=== PATIENT | female | born 1935 | race Caucasian/White ===

== ENCOUNTER 2019-12-16 21:00 | Emergency (ER) | payer MEDICARE, MEDICAID ==
[~2019-12-16] VITALS: Ht 162.6 cm; Wt 68.0 kg
[2019-12-16 21:29] VITALS: BP_SYST 186
[2019-12-16 21:45] LABS: MEAN CORPUSCULAR HEMOGLOBIN 30 pg (27-31)
[2019-12-16 21:49] LABS: BASOPHILS # (AUTO) 0.1 K/uL (0.0-0.2); BASOPHILS % (AUTO) 0.9 % (0.0-2.0); EOSINOPHILS # (AUTO) 0.2 K/uL (0.0-0.4); EOSINOPHILS % (AUTO) 1.9 % (0.0-4.0); HEMATOCRIT 39.2 % (36-48); HEMOGLOBIN 12.9 g/dL (12.0-16.0); LYMPHOCYTES # (AUTO) 2.9 K/uL (1.0-5.5); LYMPHOCYTES % (AUTO) 27.3 % (20.5-51.5); MEAN CORPUSCULAR HGB CONC 33 % (32-36); MEAN CORPUSCULAR VOLUME 92 fL (79.0-98.0); MONOCYTES # (AUTO) 1.3 K/uL (0.0-1.0); MONOCYTES % (AUTO) 12.1 % (1.7-9.3); NEUTROPHILS # (AUTO) 6.2 K/uL (1.8-7.7); NEUTROPHILS % (AUTO) 57.8 % (40.0-70.0); PLATELET COUNT (AUTO) 287 K/uL (130-430); RED BLOOD CELL COUNT(AUTO) 4.25 MIL/uL (4.2-6.2); WHITE BLOOD COUNT (AUTO) 10.7 K/uL (4.8-10.8)
[2019-12-16 21:50] LABS: ANION GAP 10 (5-15); CALCIUM 9.5 mg/dL (8.4-11.0); CHLORIDE 103 mmol/L (98-107); CREATININE 1.09 mg/dL (0.55-1.30); GLUCOSE 121 mg/dL (70-99); POTASSIUM 3.5 mmol/L (3.5-5.1); SODIUM SERUM 141 mmol/L (136-145); UREA NITROGEN, BLOOD 32 mg/dL (8-21)
[2019-12-16 21:59] LABS: ALANINE AMINOTRANSFERASE 15 U/L (12-78); ALBUMIN 3.5 g/dL (3.4-4.8); ASPARTATE AMINOTRANSFERASE 16 U/L (10-37); TOTAL BILIRUBIN 0.2 mg/dL (0.0-1.0)
[2019-12-16 22:42] LABS: BILIRUBIN,URINE NEGATIVE (NEGATIVE); BLOOD, URINE 1+ (NEGATIVE); CLARITY/URINE SL CLOUDY (CLEAR); COLOR,URINE YELLOW (YELLOW); GLUCOSE,URINE NEGATIVE (NEGATIVE); KETONES,URINE NEGATIVE (NEGATIVE); LEUKOCYTE ESTERASE ,URINE 1+ (NEGATIVE); NITRITE, URINE POSITIVE (NEGATIVE); PROTEIN URINE NEGATIVE (NEGATIVE); UROBILINOGEN,URINE 0.2 (0.2-1.0)
[2019-12-16 22:55] LABS: BACTERIA,URINE MANY /HPF (None Seen)
[2019-12-16] MEDS ORDERED: METO25TA3 PO (23:16)
[2019-12-16] MEDS ORDERED: HYDR25TA4 PO (23:17)
[2019-12-16] MEDS ORDERED: cefTRIAXone 1 GM in D5W 50 ML IV ONE (23:30)
[2019-12-16] MEDS ORDERED: cefTRIAXone 1 GM VIAL ONE (23:51)
[2019-12-17 00:08] VITALS: BP_SYST 151
== END 2019-12-17 00:08 | disposition home or self-care (01) ==
LOC: SED 21:00
DX: N39.0 Urinary tract infection, site not specified (principal); R42 Dizziness and giddiness; Z79.899 Other long term (current) drug therapy
CPT/HCPCS: 36415; 70450; 71045; 80053; 81000; 84484; 85025; 85379; 87086; 93005; 96365; 99285; J0696; 87186-TC

== ENCOUNTER 2020-01-23 08:36 | Inpatient (IN) | payer MEDICAID, MEDICARE, SELFPAY ==
[~2020-01-23] VITALS: Ht 152.4 cm; Wt 56.9 kg
[2020-01-23 08:36] VITALS: BP_SYST 187
[~2020-01-23 08:36] MED LIST: HYDR25TA4 PO; METO25TA3 PO
--- NOTE | 2020-01-23 08:36 | NUR ---
BROUGHT BACK TO BED #7 VIA WHEELCHAIR, PLACED IN BED AND TRIAGED. REPORT GIVEN TO LUIS
--- NOTE | 2020-01-23 08:45 | NUR ---
Patient presented to ER C/O flank pain. Patient A&Ox4, BIB daughter wheelchair assistance to ER, afebrile, pain 12/19, denies N/V/D. Patient states she had sudden onset right flank pain today. Patient states he has HX of non-hodgkins lymphoma in remission, and was seen for UTI in December.
[2020-01-23] MEDS ORDERED: NACL 0.9% 1,000 ML IV ONE (08:52)
--- NOTE | 2020-01-23 08:55 | NUR ---
ER Dr. Mcdaniels at bedside examining patient.
[2020-01-23] MEDS ORDERED: ONDANSETRON HCL 4 MG/2 ML VIAL IVP ONE (09:00)
[2020-01-23] MEDS ORDERED: MORPHINE 4 MG/ML INJ. SYRINGE IVP ONE (09:00)
--- NOTE | 2020-01-23 09:15 | NUR ---
PT ASSISITED TO RESTROOM VIA WHEELCHAIR
[2020-01-23 09:26] LABS: BASOPHILS # (AUTO) 0.1 K/uL (0.0-0.2); BASOPHILS % (AUTO) 0.6 % (0.0-2.0); EOSINOPHILS # (AUTO) 0.1 K/uL (0.0-0.4); EOSINOPHILS % (AUTO) 1.6 % (0.0-4.0); HEMATOCRIT 40.2 % (36-48); HEMOGLOBIN 13.5 g/dL (12.0-16.0); LYMPHOCYTES # (AUTO) 1.8 K/uL (1.0-5.5); LYMPHOCYTES % (AUTO) 21.4 % (20.5-51.5); MEAN CORPUSCULAR HEMOGLOBIN 31 pg (27-31); MEAN CORPUSCULAR HGB CONC 34 % (32-36); MEAN CORPUSCULAR VOLUME 92 fL (79.0-98.0); MONOCYTES % (AUTO) 11.7 % (1.7-9.3); NEUTROPHILS # (AUTO) 5.4 K/uL (1.8-7.7); NEUTROPHILS % (AUTO) 64.7 % (40.0-70.0); PLATELET COUNT (AUTO) 276 K/uL (130-430); RED BLOOD CELL COUNT(AUTO) 4.37 MIL/uL (4.2-6.2); RED CELL DISTRIBUTION WIDTH 13.7 % (9.0-15.0); WHITE BLOOD COUNT (AUTO) 8.4 K/uL (4.8-10.8)
[2020-01-23 10:02] LABS: ANION GAP 7 (5-15); CALCIUM 9.4 mg/dL (8.4-11.0); CHLORIDE 105 mmol/L (98-107); CREATININE 1.05 mg/dL (0.55-1.30); GLUCOSE 94 mg/dL (70-99); SODIUM SERUM 140 mmol/L (136-145); UREA NITROGEN, BLOOD 26 mg/dL (8-21)
[2020-01-23 10:10] LABS: ALANINE AMINOTRANSFERASE 13 U/L (12-78); ALBUMIN 3.5 g/dL (3.4-4.8); ASPARTATE AMINOTRANSFERASE 18 U/L (10-37); LIPASE 250 U/L (73-393); TOTAL BILIRUBIN 0.5 mg/dL (0.0-1.0)
[2020-01-23 10:18] LABS: BILIRUBIN,URINE NEGATIVE (NEGATIVE); BLOOD, URINE 1+ (NEGATIVE); CLARITY/URINE SL CLOUDY (CLEAR); COLOR,URINE YELLOW (YELLOW); GLUCOSE,URINE NEGATIVE (NEGATIVE); KETONES,URINE NEGATIVE (NEGATIVE); LEUKOCYTE ESTERASE ,URINE TRACE (NEGATIVE); NITRITE, URINE POSITIVE (NEGATIVE); PROTEIN URINE NEGATIVE (NEGATIVE); UROBILINOGEN,URINE 0.2 (0.2-1.0)
[2020-01-23 10:33] LABS: BACTERIA,URINE FEW /HPF (None Seen)
[2020-01-23 10:35] LABS: CALCIUM OXALATE CRYSTALS,UR None Seen /HPF (None Seen); CALCIUM PHOSPHATE CRYSTALS,UR None Seen /HPF (None Seen); TRICHOMONAS,URINE None Seen /HPF (None Seen); URIC ACID CRYSTALS,URINE None Seen /HPF (None Seen); YEAST,URINE None Seen /HPF (None Seen)
[2020-01-23 10:36] LABS: TRIPLE PHOSPHATE CRYSTAL,UR 0-10 /HPF (None Seen)
[2020-01-23 10:37] LABS: OTHER CRYSTALS,URINE None Seen /HPF (None Seen)
[2020-01-23] MEDS ORDERED: cefTRIAXone 1 GM IVPB PREMIX 50 ML IV ONE (10:45)
--- NOTE | 2020-01-23 11:05 | NUR ---
PT ASSISTED TO RESTROOM WITH WHEELCHAIR
[2020-01-23] MEDS ORDERED: ASPIRIN 325 MG TABLET PO ONE (11:15)
--- NOTE | 2020-01-23 11:15 | NUR ---
Urine specimen collected and analyzed in ER. Results given to ER .
--- NOTE | 2020-01-23 12:05 | NUR ---
Patient will be admitted to care of DR ARNDT. Admitted to TELE unit. Will go to room 114B. Belongings list completed. Complete and up to date summary report printed. SBAR report to be given at bedside with opportunity for questions. Transfer to TELE via ACLS protocol. Licensed nurse present. IV present no signs or symptoms of infiltration.
--- NOTE | 2020-01-23 12:34 | NUR ---
CONSULTATION PAGED REASON FOR CONSULTATION:POSITIVE TROPONIN WAS CONSULT CALLED?Y PERSON WHO WAS NOTIFIED:[facility] CONSULTING PHYSICIAN:PAUL CHICAS DRY WALL PLASTERER SPECIALTY:CARDIO DRY WALL PLASTERER PHONE NUMBER:[phone] ORDERING PHYSICIAN:REYNALDO MARTINES
--- NOTE | 2020-01-23 12:39 | NUR ---
CONSULTATION PAGED/CALLED Reason for Consultation: POSITIVE TROPONIN Person Who was Notified: MARITZA Consulting Physician: DHRUV Special Officer Specialty: CARDIO Ordering Physician: YRIS
[2020-01-23 13:30] VITALS: BP_SYST 114
[2020-01-23] MEDS ORDERED: METOPROLOL SUCCINATE 25 MG TAB.SR.24H (TOPROL XL) PO ONE (14:00)
[2020-01-23] MEDS ORDERED: ASPIRIN 81 MG TAB.CHEW PO ONE (14:00)
--- NOTE | 2020-01-23 14:00 | NUR ---
ADMISSION: RECEIVED PT A/A/OX4, ITALIAN SPEAKING, AND OF EPISCOPAL DESCENT, DX:PAIN/COMFORT, R/T FLANK PAIN, POSITIVE TROPONIN. AFEBRILE, VSS, PT C/O PAIN TO RIGHT SIDE FLANK PAIN, WARM COMPRESS WAS GIVE, TO APPLY TO AFFECTED SIDE, PT STATES SHE FEELS MUCH BETTER. ASSESSMENT COMPLETED, ORIENTED TO UNIT, CALL LIGHT PLACED WITHIN REACH, SKIN INTACT, NO S/S OF DISTRESS, BREATHING EASY, WILL CONT' TO MONITOR AND ASSESS.
[2020-01-23 16:08] LABS: CHOLESTEROL 125 mg/dL (<200); HDL CHOLESTEROL 46 mg/dL (>55); LDL CHOLESTEROL 72 mg/dL (<100); TRIGLYCERIDES 82 mg/dL (30-150)
--- NOTE | 2020-01-23 17:05 | NUR ---
Flynn CHAPMAN CALLED AT SPOKE WITH DR.KANGARLU RICHARDSON SOPHIA CONCRETE WALL GRINDER OPERATOR.
--- NOTE | 2020-01-23 17:30 | NUR ---
VISIT: AT BEDSIDE FOR ASSESSMENT OF PT, NEW ORDERS GIVEN, WILL CONT' TO MONITOR AND ASSESS.
--- NOTE | 2020-01-23 19:45 | NUR ---
ROUNDS PATIENT RESTING COMFORTABLY IN BED, NOT IN DISTRESS, VITALS STABLE. DENIES ANY PAIN AND DISCOMFORT AT THIS TIME. ASSESSMENT DONE AND DOCUMENTED. SEE FLOWSHEET. NEEDS ATTENDED TO. SAFETY AND FALL MEASURES IN PLACED. CALL LIGHT PLACED WITHIN REACH.
--- NOTE | 2020-01-23 21:35 | NUR ---
ROUNDS ASSISTED PATIENT TO THE BATHROOM AND BACK, DENIES ANY PAIN AT THIS TIME, NO COMPLAINTS. WILL CONTINUE TO MONITOR.
--- NOTE | 2020-01-24 00:13 | NUR ---
PATIENT RESTING: Patient resting quietly. No acute distress noted. Vital signs within normal range. Patient now NPO for her scheduled US of the abdomen. Will continue to monitor.
--- NOTE | 2020-01-24 00:21 | NUR ---
Rounds: Patient is resting comfortably in bed. No acute distress. Tolerating room air. Even, unlabored breathing. Call light is with patient. Will continue to monitor. Addendum: 01/25/20 at 0246 by Roberto Ruff RN Please disregard above note, wrong date.
[2020-01-24 01:26] VITALS: BP_SYST 124
--- NOTE | 2020-01-24 02:14 | NUR ---
ROUNDS PATIENT ASLEEP, NO SOB NOR PAIN AND DISCOMFORT NOTED. WILL CONTINUE TO MONITOR.
[2020-01-24 08:00] VITALS: BP_SYST 168
[2020-01-24 08:13] LABS: ALANINE AMINOTRANSFERASE 15 U/L (12-78); ALBUMIN 2.9 g/dL (3.4-4.8); ANION GAP 7 (5-15); ASPARTATE AMINOTRANSFERASE 13 U/L (10-37); CALCIUM 8.6 mg/dL (8.4-11.0); CHLORIDE 107 mmol/L (98-107); CREATININE 1.03 mg/dL (0.55-1.30); GLUCOSE 86 mg/dL (70-99); POTASSIUM 3.9 mmol/L (3.5-5.1); SODIUM SERUM 144 mmol/L (136-145); THYROID STIMULATING HORMONE 1.32 uIu/mL (0.36-3.74); TOTAL BILIRUBIN 0.3 mg/dL (0.0-1.0); UREA NITROGEN, BLOOD 25 mg/dL (8-21)
[2020-01-24] MEDS: HYDROCHLOROTHIAZIDE 25 MG TABLET (HCTZ) PO SCH (08:34)
[2020-01-24] MEDS: ASPIRIN 81 MG TAB.CHEW PO SCH (08:35)
[2020-01-24] MEDS: METOPROLOL SUCCINATE 25 MG TAB.SR.24H (TOPROL XL) PO SCH (08:36)
--- NOTE | 2020-01-24 08:38 | NUR ---
AM MEDS GIVEN, DR BARTLETT HERE AND SEEN PT.
--- NOTE | 2020-01-24 15:38 | NUR ---
PT HAS BEEN STABLE, NO SOB, NO C/O PAIN. CONTINUE MONITORING PT.
--- NOTE | 2020-01-24 15:57 | NUR ---
Nutrition Note RD received a phone call from sales engineer account manager regarding pt's food preferences as per pt's daughter's report. Preferences noted in [employer]. Pt has no dentures, and foods have been difficult to eat/enjoy. RD recommended extra sauces/gravies and downgrade to cardiac, mechanical soft diet for improved mastication of foods. RD implemented modified texture diet order. FNS staff aware. RD to continue to follow as per nutrition care standards.
[2020-01-24 16:00] VITALS: BP_SYST 160
[2020-01-24] MEDS ORDERED: ACETAMINOPHEN 325 MG TABLET PO PRN (19:00)
--- NOTE | 2020-01-24 19:00 | NUR ---
closing notes, patient has been stable the whole shift, bp was elevatd, dr wick was aware, pt has no c/o flank pain, pt c/o of headache though, given tylenol for head ache. endorse to night nurse mendy.
--- NOTE | 2020-01-24 19:38 | NUR ---
Initial note: Received report from dayshift RN. Patient is awake, lying in bed, no acute distress. Even and unlabored respirations on room air. IV site flushes well with NS, saline locked. Call light is with patient. Safety, fall precautions in place. Will continue with plan of care.
[2020-01-24 20:00] VITALS: BP_SYST 139
--- NOTE | 2020-01-24 21:47 | NUR ---
Rounds: Patient is awake in bed. No acute distress. Tolerating room air. Even, unlabored breathing. Call light is with patient. Will continue to monitor.
[2020-01-25 00:17] VITALS: BP_SYST 145
--- NOTE | 2020-01-25 00:21 | NUR ---
Rounds: Patient is resting comfortably in bed. No acute distress. Tolerating room air. Even, unlabored breathing. Call light is with patient. Will continue to monitor.
--- NOTE | 2020-01-25 06:36 | NUR ---
Closing note: Patient shows no acute distress, even, unlabored breathing on room air. IV site without infiltration. All needs met. Safety, fall precautions in place. Will endorse care to dayshift RN.
--- NOTE | 2020-01-25 07:55 | NUR ---
Initial notes In bed, awake. wants some hot tea. hot tea provided. Denies any pain or discomfort. no acute distress noted. safety precaution observed. call light within reach. will monitor.
[2020-01-25 08:00] VITALS: BP_SYST 154
[2020-01-25] MEDS: ASPIRIN 81 MG TAB.CHEW PO SCH (08:29)
[2020-01-25] MEDS: HYDROCHLOROTHIAZIDE 25 MG TABLET (HCTZ) PO SCH (08:29)
[2020-01-25] MEDS: METOPROLOL SUCCINATE 25 MG TAB.SR.24H (TOPROL XL) PO SCH (08:29)
[2020-01-25 09:45] VITALS: BP_SYST 154
--- NOTE | 2020-01-25 10:31 | NUR ---
Notes D/C PATIENT HOME ACCOMPANIED BY DAUGHTER. DENIES ANY PAIN OR DISCOMFORT. NO DISTRESS NOTED. IVL AND ARM BAND REMOVED. DISCHARGE INSTRUCTION GIVEN AND DISCUSSED. NO DISTRESS NOTED. DISCHARGE
--- NOTE | 2020-01-28 15:51 | NUR ---
Discharge Follow Up Call: CENTRAL OFFICE TECHNICIAN phoned pt @ [phone] and spoke with [employer]Mark. Per dtr, pt is "doing well" and dos not feel a follow up appointment is necessary because "shes doing well". CENTRAL OFFICE TECHNICIAN educated on the importance of follow up care. Pt and family does not have any questions/concerns about the discharge instructions. No further SS call needed at this time.
== END 2020-01-25 10:25 | disposition home or self-care (01) ==
LOC: SED 08:36 → STU 11:07
PROVIDERS: ADMIT Internal Medicine Hospice and Palliative Medicine; ATTEND Internal Medicine Hospice and Palliative Medicine
DX: K80.20 Calculus of gallbladder without cholecystitis without obstruction (principal); R77.8 Other specified abnormalities of plasma proteins; I10 Essential (primary) hypertension; Z20.828 Contact with and (suspected) exposure to other viral communicable diseases; Z79.899 Other long term (current) drug therapy; I21.A1 Myocardial infarction type 2
CPT/HCPCS: 36415; 71045; 76700-TC; 80053; 80061; 81000-TC; 83690-TC; 84443-TC; 84484; 85025; 87040-TC; 87086; 93005; 93306; 96361; 96365; 96375; 99285; G0378; J0696; J2270; J2405